=== PATIENT | male | born 1960 | race Caucasian/White ===

== ENCOUNTER 2017-09-01 14:55 | Emergency (ER) | payer MEDICAID ==
[~2017-09-01] VITALS: Ht 175.3 cm; Wt 75.0 kg
[2017-09-01] MEDS ORDERED: LEVO25TA7 PO (15:04)
[2017-09-01] MEDS ORDERED: FAMO20TA8 PO (15:04)
[2017-09-01 15:56] LABS: BASOPHILS % 0.7 % (0.0-2.0); EOSINOPHILS % 6.4 % (0.0-5.0); HEMOGLOBIN. 13.3 g/dL (14.0-18.0); LYMPHOCYTES % 13.7 % (20.0-50.0); MEAN CORPUSCULAR HEMOGLOBIN 30.4 pg (28.0-32.0); MEAN PLATELET VOLUME 7.8 fl (7.4-10.4); MONOCYTES % 7.1 % (2.0-8.0); NEUTROPHILS % 72.1 % (40.0-76.0); PLATELET 228 x1000/uL (130-400); RED BLOOD CELL COUNT 4.38 mill/uL (4.7-6.1); RED CELL DISTRIBUTION WIDTH 13.5 % (11.6-14.6)
[2017-09-01 16:05] LABS: PARTIAL THROMBOPLASTIN TIME 28.9 sec (23.4-31.0); PROTHROMBIN TIME 10.8 sec (9.4-11.6)
[2017-09-01 16:06] LABS: CHLORIDE 102 mEq/L (98-107)
[2017-09-01 16:12] LABS: TROPONIN I < 0.02 ng/mL (0.00-0.04)
[2017-09-01 20:03] VITALS: BP 105/70
== END 2017-09-01 20:03 | disposition home or self-care (01) ==
LOC: ER 14:55
DX: M79.89 Other specified soft tissue disorders (principal); R22.32 Localized swelling, mass and lump, left upper limb; I10 Essential (primary) hypertension
CPT/HCPCS: 36415; 71045; 80053; 83690; 83880; 84484; 85025; 85610; 85730; 93005; 93971; 99285

== ENCOUNTER 2019-01-11 17:01 | Inpatient (IN) | payer MEDICAID ==
[~2019-01-11] VITALS: Ht 170.2 cm; Wt 69.0 kg
[~2019-01-11 17:01] MED LIST: FAMO20TA8 PO; LEVO25TA7 PO
[2019-01-11] MEDS ORDERED: ACETAMINOPHEN 650MG SUPP PR STA (17:19)
[2019-01-11] MEDS ORDERED: PIPERACILLIN/TAZ 3.375G PREMIX 50 ML IV ONE (17:30)
[2019-01-11] MEDS ORDERED: HYDROCORTISONE SOD SUCCINATE 100 MG/2 ML VIAL IV ONE (17:30)
[2019-01-11] MEDS ORDERED: LEVETIRACETAM 500MG PREMIX 100 ML IV ONE (17:30)
[2019-01-11] MEDS ORDERED: VANCOMYCIN 1 G PREMIX 200 ML IV ONE (17:30)
[2019-01-11 17:47] LABS: BG BASE EXCESS 3.5 mmol/L (-2.0-2.0); BG DEOXYHEMOGLOBIN 6.5 % (0.0-5.0); BG HCO3 ACT 30.1 mmol/L (22.0-26.0); BG METHEMOGLOBIN 0.1 % (0.0-1.5); BG OXYGEN SATURATION 93.4 % (92.0-98.5); BG OXYHEMOGLOBIN 92.4 % (94.0-97.0); BG PCO2 53.9 mmHg (35.0-45.0); BG PH 7.365 (7.350-7.450); BG SAMPLE SITE RIGHT BRACHIAL; BG TOTAL HEMOGLOBIN 13.6 g/dL (12.0-18.0); BG VENT MODE ROOM AIR
[2019-01-11 17:50] LABS: BASOPHILS % 0.5 % (0.0-2.0); EOSINOPHILS % 4.4 % (0.0-5.0); HEMATOCRIT. 38.4 % (42.0-52.0); HEMOGLOBIN. 13.3 g/dL (14.0-18.0); LYMPHOCYTES % 8.2 % (20.0-50.0); MEAN CORPUSCULAR HEMOGLOBIN 30.9 pg (28.0-32.0); MEAN PLATELET VOLUME 7.4 fl (7.4-10.4); MONOCYTES % 5.2 % (2.0-8.0); NEUTROPHILS % 81.7 % (40.0-76.0); PLATELET 201 x1000/uL (130-400); RED BLOOD CELL COUNT 4.32 mill/uL (4.7-6.1); RED CELL DISTRIBUTION WIDTH 14.1 % (11.6-14.6)
[2019-01-11 17:57] LABS: PROTHROMBIN TIME 10.4 sec (9.6-11.0)
[2019-01-11 18:13] LABS: CHLORIDE 97 mEq/L (98-107)
[2019-01-11 18:23] LABS: CREATINE KINASE 75 IU/L (39-308); CREATINE KINASE MB FRACTION 2.6 ng/mL (0.5-3.6)
[2019-01-11 18:34] LABS: CARBAMAZEPINE < 0.5 ug/mL (4-12)
[2019-01-11 18:38] LABS: PHENOBARBITAL < 2.1 ug/mL (15.0-40.0)
[2019-01-11] MEDS ORDERED: LORAZEPAM 2MG/ML CPJ IV ONE (19:30)
[2019-01-11] MEDS ORDERED: CLONIDINE 0.1MG TABLET PO PRN (22:15)
[2019-01-11] MEDS ORDERED: ACETAMINOPHEN 325MG TABLET PO PRN (22:15)
[2019-01-11] MEDS ORDERED: MAGNESIUM/ALUMINUM HYDROXIDE/SIMETHICONE 30ML UDC PO PRN (22:15)
[2019-01-11] MEDS ORDERED: DIPHENHYDRAMINE 50MG/ML VIAL IV PRN (22:15)
[2019-01-11] MEDS ORDERED: IPRATROPIUM/ALBUTEROL 0.5-3(2.5)MG/3ML NEB INH PRN (22:15)
[2019-01-12] VITALS (8 sets, daily range): BP systolic 91–124; BP diastolic 57–79
[2019-01-12] MEDS ORDERED: GUAIFENESIN 200MG/10ML SUGAR FREE UDC PO PRN (00:45)
[2019-01-12] MEDS: LORAZEPAM 2MG/ML CPJ IV PRN (03:35)
[2019-01-12] MEDS ORDERED: MVI, ADULT NO.1 10 ML, FOLIC ACID 1 MG, THIAMINE HCL 100 MG in SODIUM CHLORIDE 0.9% 1,0... IV SCH ×4 (10:00)
[2019-01-12] MEDS: ENOXAPARIN 40MG/0.4ML SYR SUBCUT SCH (11:36)
[2019-01-12] MEDS: LEVETIRACETAM 500 MG in SODIUM CHLORIDE 0.9% 100 ML IV SCH ×2 (11:36→22:11)
[2019-01-12] MEDS: SODIUM CHLORIDE 0.9% 1,000 ML IV SCH ×2 (11:37→23:22)
[2019-01-12 18:48] LABS: CLARITY URINE TURBID (CLEAR); COLOR URINE YELLOW (YELLOW); KETONES URINE NEGATIVE (NEGATIVE); LEUKOCYTE ESTERASE URINE 3+ (NEGATIVE); NITRITE URINE POSITIVE (NEGATIVE); OCCULT BLOOD URINE 2+ (NEGATIVE); PH URINE 7.5 (4.5-8.0); PROTEIN URINE NEGATIVE (NEGATIVE); SPECIFIC GRAVITY URINE 1.005 (1.005-1.030); UROBILINOGEN URINE 0.2 E.U./dL (0.2-1.0)
[2019-01-12] MEDS ORDERED: VANCOMYCIN 1250MG in DEXTROSE 5% WATER 250ML IV SCH (20:00)
[2019-01-12] MEDS ORDERED: CITA20SO PO (20:28)
[2019-01-12] MEDS ORDERED: THIA100T72 PO (20:28)
[2019-01-12] MEDS ORDERED: PHEN100C4 PO (20:28)
[2019-01-12] MEDS ORDERED: FOLI-43 PO (20:28)
[2019-01-12] MEDS ORDERED: BACL20TA PO (20:28)
[2019-01-12] MEDS ORDERED: LEVE1000 PO (20:28)
[2019-01-12] MEDS ORDERED: SENN-170 PO (20:28)
[2019-01-12] MEDS ORDERED: GABA-290 PO (20:28)
[2019-01-12] MEDS ORDERED: SUCR1TAB PO (20:28)
[2019-01-12] MEDS ORDERED: LACO200T2 PO (20:28)
[2019-01-12] MEDS ORDERED: MULT-1146 PO (20:28)
[2019-01-13] VITALS (15 sets, daily range): BP systolic 2–132; BP diastolic 53–87
[2019-01-13] MEDS ORDERED: VANCOMYCIN 1 G PREMIX 200 ML IV SCH (04:00)
[2019-01-13] MEDS: SODIUM CHLORIDE 0.9% 1,000 ML IV SCH ×2 (06:11→17:12)
[2019-01-13] MEDS: LEVETIRACETAM 500 MG in SODIUM CHLORIDE 0.9% 100 ML IV SCH (08:54)
[2019-01-13] MEDS: ENOXAPARIN 40MG/0.4ML SYR SUBCUT SCH (08:54)
[2019-01-13] MEDS: IPRATROPIUM/ALBUTEROL 0.5-3(2.5)MG/3ML NEB HHN SCH ×3 (11:37→20:48)
[2019-01-13] MEDS: LORAZEPAM 2MG/ML CPJ IV PRN (12:05)
[2019-01-13] MEDS ORDERED: PHENYTOIN SODIUM 500 MG in SODIUM CHLORIDE 0.9% 50 ML IV NR (14:00)
[2019-01-13] MEDS ORDERED: LACOSAMIDE 200 MG TABLET (VIMPAT) PO SCH (15:00)
[2019-01-13] MEDS: LEVETIRACETAM 2,000 MG in SODIUM CHLORIDE 0.9% 100 ML IV SCH ×2 (15:09→21:27)
[2019-01-13] MEDS: VANCOMYCIN 1 G PREMIX 200 ML IV SCH ×2 (16:26→21:27)
[2019-01-13] MEDS ORDERED: NON FORMULARY PATIENT HOME MED PO SCH (17:00)
[2019-01-13] MEDS: LACOSAMIDE 200 MG TABLET (VIMPAT) PO SCH (17:13)
[2019-01-14] VITALS (11 sets, daily range): BP systolic 97–136; BP diastolic 51–81
[2019-01-14] MEDS: IPRATROPIUM/ALBUTEROL 0.5-3(2.5)MG/3ML NEB HHN SCH ×6 (00:05→20:42)
[2019-01-14] MEDS: LORAZEPAM 2MG/ML CPJ IV PRN ×3 (02:07→17:01)
[2019-01-14] MEDS: VANCOMYCIN 1 G PREMIX 200 ML IV SCH (05:30)
[2019-01-14 07:14] LABS: CHLORIDE 108 mEq/L (98-107)
[2019-01-14 07:21] LABS: VANCOMYCIN TROUGH 27.3 ug/mL (5.0-10.0)
[2019-01-14] MEDS: LACOSAMIDE 200 MG TABLET (VIMPAT) PO SCH ×2 (08:10→16:21)
[2019-01-14] MEDS: PHENYTOIN SODIUM 100MG/2ML VIAL IV SCH ×3 (08:10→22:08)
[2019-01-14] MEDS: ENOXAPARIN 40MG/0.4ML SYR SUBCUT SCH (08:11)
[2019-01-14] MEDS: LEVETIRACETAM 2,000 MG in SODIUM CHLORIDE 0.9% 100 ML IV SCH ×2 (08:11→22:08)
[2019-01-14 09:31] LABS: BASOPHILS % 0.3 % (0.0-2.0); EOSINOPHILS % 1.4 % (0.0-5.0); HEMATOCRIT. 31.9 % (42.0-52.0); HEMOGLOBIN. 11.1 g/dL (14.0-18.0); LYMPHOCYTES % 12.2 % (20.0-50.0); MEAN CORPUSCULAR HEMOGLOBIN 31.2 pg (28.0-32.0); MEAN CORPUSCULAR VOLUME 89.9 fL (80.0-94.0); MONOCYTES % 8.6 % (2.0-8.0); NEUTROPHILS % 77.5 % (40.0-76.0); PLATELET 181 x1000/uL (130-400); RED BLOOD CELL COUNT 3.55 mill/uL (4.7-6.1)
[2019-01-14] MEDS: LEVOFLOXACIN 500MG PREMIX 100 ML IV SCH (14:16)
[2019-01-14] MEDS ORDERED: VANCOMYCIN 1 G PREMIX 200 ML IV SCH (18:00)
[2019-01-15] MEDS: LORAZEPAM 2MG/ML CPJ IV PRN ×3 (00:17→13:45)
[2019-01-15] MEDS: IPRATROPIUM/ALBUTEROL 0.5-3(2.5)MG/3ML NEB HHN SCH ×5 (00:30→20:10)
[2019-01-15] MEDS: PHENYTOIN SODIUM 100MG/2ML VIAL IV SCH ×3 (06:13→21:20)
[2019-01-15 08:00] VITALS: BP 124/79
[2019-01-15] MEDS: LACOSAMIDE 200 MG TABLET (VIMPAT) PO SCH ×2 (08:41→17:58)
[2019-01-15] MEDS: ENOXAPARIN 40MG/0.4ML SYR SUBCUT SCH (08:41)
[2019-01-15] MEDS: LEVETIRACETAM 2,000 MG in SODIUM CHLORIDE 0.9% 100 ML IV SCH ×2 (08:43→21:24)
[2019-01-15] MEDS: BACLOFEN 10MG TABLET PO SCH ×2 (08:55→17:58)
[2019-01-15] MEDS: LAMOTRIGINE 25MG TABLET PO SCH (08:55)
[2019-01-15 10:00] VITALS: BP 125/75
[2019-01-15 12:00] VITALS: BP 133/76
[2019-01-15 14:00] VITALS: BP 138/87
[2019-01-15] MEDS: LEVOFLOXACIN 500MG PREMIX 100 ML IV SCH (14:30)
[2019-01-15] MEDS ORDERED: HALOPERIDOL LACTATE 5MG/ML VIAL IM NR (15:30)
[2019-01-15 16:00] VITALS: BP 101/67
[2019-01-15 18:07] VITALS: BP 107/65
[2019-01-15] MEDS: QUETIAPINE FUMARATE 50MG TABLET PO SCH (21:24)
[2019-01-15] MEDS: LATANOPROST 0.005% OPHTH DROPS 2.5ML BOTHEYE SCH (21:25)
[2019-01-15] MEDS: HALOPERIDOL LACTATE 5MG/ML VIAL IM PRN (22:41)
[2019-01-16] VITALS (11 sets, daily range): BP systolic 97–150; BP diastolic 63–90
[2019-01-16] MEDS: IPRATROPIUM/ALBUTEROL 0.5-3(2.5)MG/3ML NEB HHN SCH ×6 (00:46→20:39)
[2019-01-16] MEDS: PHENYTOIN SODIUM 100MG/2ML VIAL IV SCH ×3 (06:34→21:25)
[2019-01-16] MEDS: ENOXAPARIN 40MG/0.4ML SYR SUBCUT SCH (08:38)
[2019-01-16] MEDS: QUETIAPINE FUMARATE 50MG TABLET PO SCH ×2 (08:38→21:25)
[2019-01-16] MEDS: BACLOFEN 10MG TABLET PO SCH ×2 (08:38→17:18)
[2019-01-16] MEDS: LAMOTRIGINE 25MG TABLET PO SCH (08:38)
[2019-01-16] MEDS: LACOSAMIDE 200 MG TABLET (VIMPAT) PO SCH ×2 (08:38→17:18)
[2019-01-16] MEDS: LEVETIRACETAM 2,000 MG in SODIUM CHLORIDE 0.9% 100 ML IV SCH ×2 (08:39→21:27)
[2019-01-16 08:47] LABS: BASOPHILS % 0.4 % (0.0-2.0); EOSINOPHILS % 5.1 % (0.0-5.0); HEMATOCRIT. 33.9 % (42.0-52.0); HEMOGLOBIN. 11.5 g/dL (14.0-18.0); LYMPHOCYTES % 10.5 % (20.0-50.0); MEAN CORPUSCULAR HEMOGLOBIN 30.9 pg (28.0-32.0); MEAN CORPUSCULAR VOLUME 91.1 fL (80.0-94.0); MEAN PLATELET VOLUME 7.6 fl (7.4-10.4); PLATELET 202 x1000/uL (130-400); RED BLOOD CELL COUNT 3.72 mill/uL (4.7-6.1); RED CELL DISTRIBUTION WIDTH 14.1 % (11.6-14.6)
[2019-01-16 09:30] LABS: CHLORIDE 104 mEq/L (98-107)
[2019-01-16 09:40] LABS: PHOSPHORUS 3.8 mg/dL (2.5-4.9)
[2019-01-16] MEDS: HALOPERIDOL LACTATE 5MG/ML VIAL IM PRN ×2 (12:45→21:25)
[2019-01-16] MEDS: LEVOFLOXACIN 500MG PREMIX 100 ML IV SCH (14:40)
[2019-01-16] MEDS ORDERED: DEXT 5%/0.45% NACL 1000ML 1,000 ML IV ONE (20:00)
[2019-01-16] MEDS: LATANOPROST 0.005% OPHTH DROPS 2.5ML BOTHEYE SCH (21:39)
[2019-01-17] VITALS (12 sets, daily range): BP systolic 108–139; BP diastolic 73–86
[2019-01-17] MEDS: IPRATROPIUM/ALBUTEROL 0.5-3(2.5)MG/3ML NEB HHN SCH ×6 (00:12→21:18)
[2019-01-17] MEDS: PHENYTOIN SODIUM 100MG/2ML VIAL IV SCH ×3 (05:17→21:02)
[2019-01-17] MEDS: ENOXAPARIN 40MG/0.4ML SYR SUBCUT SCH (08:46)
[2019-01-17] MEDS: LEVETIRACETAM 2,000 MG in SODIUM CHLORIDE 0.9% 100 ML IV SCH ×2 (08:46→21:03)
[2019-01-17] MEDS: LAMOTRIGINE 25MG TABLET PO SCH (08:47)
[2019-01-17] MEDS: LACOSAMIDE 200 MG TABLET (VIMPAT) PO SCH ×2 (08:47→17:09)
[2019-01-17] MEDS: QUETIAPINE FUMARATE 50MG TABLET PO SCH ×2 (08:47→21:02)
[2019-01-17] MEDS: BACLOFEN 10MG TABLET PO SCH ×2 (08:47→17:09)
[2019-01-17] MEDS: LEVOFLOXACIN 500MG PREMIX 100 ML IV SCH (14:02)
[2019-01-17] MEDS: LATANOPROST 0.005% OPHTH DROPS 2.5ML BOTHEYE SCH (21:02)
== END 2019-01-17 21:56 | disposition home or self-care (01) | DRG 53 ==
LOC: ER 17:01 → 5EST 18:34 → EDBEDREQ 18:36 → EDBEDREQTM 18:38 → ENRESERV 01-12 07:02
PROVIDERS: ADMIT Internal Medicine; ATTEND Internal Medicine
DX: G40.901 Epilepsy, unspecified, not intractable, with status epilepticus (principal); G82.50 Quadriplegia, unspecified; Z93.0 Tracheostomy status; N31.9 Neuromuscular dysfunction of bladder, unspecified; B96.5 Pseudomonas (aeruginosa) (mallei) (pseudomallei) as the cause of diseases classified elsewhere; L89.890 Pressure ulcer of other site, unstageable; J20.9 Acute bronchitis, unspecified; N39.0 Urinary tract infection, site not specified; F23 Brief psychotic disorder; Z74.01 Bed confinement status
CPT/HCPCS: 36415; 36600; 71045; 80048; 80156; 80165; 80184; 80185; 80202; 80339; 82140; 82375; 82550; 82553; 82805; 82962; 83605; 83735; 83880; 84100; 84134; 84145; 84443; 84484; 87077; 87186; 93005; 94640; 96365; 96368; 96375; 99291; A6261; J1165; J1630; J1650; J1720; J1953; J1956; J2060; J2543; J3370; J3411; J3490; J7030; J7050; J7060; J7620; A4315

== ENCOUNTER 2019-02-19 03:56 | Emergency (ER) | payer MEDICAID ==
[~2019-02-19] VITALS: Ht 167.6 cm; Wt 66.0 kg
[~2019-02-19 03:56] MED LIST changes: +BACL20TA PO; +CITA20SO2 PO; +FOLI-43 PO; +GABA-290 PO; +LACO200T2 PO; +LEVE1000 PO; +MULT-1146 PO; +PHEN100C4 PO; +SENN-170 PO; +SUCR1TAB PO; +THIA100T72 PO
[2019-02-19] MEDS ORDERED: ACETAMINOPHEN 500MG TABLET PO ONE (05:15)
[2019-02-19 08:37] VITALS: BP 83/52
== END 2019-02-19 08:41 | disposition home or self-care (01) ==
LOC: ER 03:56
DX: N40.1 Benign prostatic hyperplasia with lower urinary tract symptoms (principal); R33.8 Other retention of urine; G82.50 Quadriplegia, unspecified; G40.909 Epilepsy, unspecified, not intractable, without status epilepticus; Z87.440 Personal history of urinary (tract) infections
CPT/HCPCS: 51701; 99283

== ENCOUNTER 2019-11-18 10:18 | Inpatient (IN) | payer MEDICAID ==
[~2019-11-18] VITALS: Ht 177.8 cm; Wt 77.1 kg
[2019-11-18] MEDS ORDERED: PROPOFOL 10MG/ML 100ML 100 ML IV SCH (10:45)
[2019-11-18] MEDS ORDERED: ETOMIDATE 2MG/ML 10ML VIAL IV ONE (10:45)
[2019-11-18] MEDS ORDERED: PIPERACILLIN/TAZ 3.375G PREMIX 50 ML IV ONE (10:45)
[2019-11-18] MEDS ORDERED: SODIUM CHLORIDE 0.9% 1000ML BAG (SEPSIS BOLUS) IV ONE ×2 (10:45→12:15)
[2019-11-18] MEDS ORDERED: PROPOFOL 200MG/20ML VIAL IV ONE (10:45)
[2019-11-18 10:46] LABS: BASOPHILS % 0.5 % (0.0-2.0); EOSINOPHILS % 1.9 % (0.0-5.0); HEMATOCRIT. 37.6 % (42.0-52.0); HEMOGLOBIN. 11.9 g/dL (14.0-18.0); LYMPHOCYTES % 35.7 % (20.0-50.0); MEAN CORPUSCULAR HEMOGLOBIN 31.3 pg (28.0-32.0); MEAN CORPUSCULAR VOLUME 98.7 fL (80.0-94.0); MEAN PLATELET VOLUME 7.7 fl (7.4-10.4); MONOCYTES % 6.4 % (2.0-8.0); NEUTROPHILS % 55.5 % (40.0-76.0); PLATELET 401 x1000/uL (130-400); RED BLOOD CELL COUNT 3.81 mill/uL (4.7-6.1); RED CELL DISTRIBUTION WIDTH 17.4 % (11.6-14.6)
[2019-11-18 10:50] LABS: CHLORIDE 102 mEq/L (98-107)
[2019-11-18 10:58] LABS: CREATINE KINASE 84 IU/L (39-308)
[2019-11-18] MEDS ORDERED: VECURONIUM BROMIDE 10 MG/VIAL IV ONE (11:00)
[2019-11-18 11:12] LABS: BG BASE EXCESS -9.3 mmol/L (-2.0-2.0); BG CARBOXYHEMOGLOBIN 0.3 % (0.5-1.5); BG DEOXYHEMOGLOBIN 0.5 % (0.0-5.0); BG FRACTION INSPIRED OXYGEN 100; BG HCO3 ACT 20.7 mmol/L (22.0-26.0); BG METHEMOGLOBIN 0.2 % (0.0-1.5); BG OXYGEN SATURATION 99.5 % (92.0-98.5); BG PCO2 67.2 mmHg (35.0-45.0); BG PH 7.106 (7.350-7.450); BG PO2 550.6 mmHg (75.0-100.0); BG SAMPLE SITE RIGHT BRACHIAL; BG TIDAL VOLUME(mL) 500 mL; BG TOTAL HEMOGLOBIN 10.7 g/dL (12.0-18.0); BG VENT MODE VENT - A/C; BG VENT RATE 14 set
[2019-11-18 11:24] LABS: CLARITY URINE CLEAR (CLEAR); COLOR URINE YELLOW (YELLOW); KETONES URINE NEGATIVE (NEGATIVE); LEUKOCYTE ESTERASE URINE 3+ (NEGATIVE); NITRITE URINE POSITIVE (NEGATIVE); OCCULT BLOOD URINE NEGATIVE (NEGATIVE); PH URINE 7.5 (4.5-8.0); PROTEIN URINE 1+ (NEGATIVE); SPECIFIC GRAVITY URINE 1.012 (1.005-1.030); UROBILINOGEN URINE 0.2 E.U./dL (0.2-1.0)
[2019-11-18] MEDS ORDERED: DIPHENHYDRAMINE 50MG/ML VIAL IV PRN (12:00)
[2019-11-18] MEDS ORDERED: GUAIFENESIN 200MG/10ML SUGAR FREE UDC PO PRN (12:00)
[2019-11-18] MEDS ORDERED: ONDANSETRON HCL 4MG/2ML INJ IV PRN (12:00)
[2019-11-18] MEDS ORDERED: LORAZEPAM 2MG/ML CPJ IV PRN (12:00)
[2019-11-18] MEDS ORDERED: ACETAMINOPHEN 325MG TABLET PO PRN (12:00)
[2019-11-18] MEDS ORDERED: DOCUSATE SODIUM 100MG CAPSULE PO PRN (12:00)
[2019-11-18] MEDS ORDERED: MAGNESIUM/ALUMINUM HYDROXIDE/SIMETHICONE 30ML UDC PO PRN (12:00)
[2019-11-18] MEDS ORDERED: MORPHINE SULFATE 2 MG/ML CPJ (NOT FOR IM USE) IV PRN (12:00)
[2019-11-18] MEDS ORDERED: IPRATROPIUM/ALBUTEROL 0.5-3(2.5)MG/3ML NEB NEB PRN (12:00)
[2019-11-18] MEDS ORDERED: HYDROCODONE/ACETAMINOPHEN 5/325MG TABLET PO PRN (12:00)
[2019-11-18] MEDS ORDERED: CLONIDINE 0.1MG TABLET PO PRN (12:00)
[2019-11-18] MEDS ORDERED: NA PHOS,M-B/NA PHOS,DI-BA ENEMA 118ML PR PRN (12:00)
[2019-11-18] MEDS ORDERED: CLINDAMYCIN 600 MG in DEXTROSE 5% WATER 50 ML IV ONE (12:15)
[2019-11-18] MEDS ORDERED: NOREPINEPHRINE 4 MG in DEXT 5% WATER 246 ML IV ONE (12:15)
[2019-11-18] MEDS ORDERED: NOREPINEPHRINE 4MG/250ML PMX 250 ML IV ONE (12:16)
[2019-11-18] MEDS ORDERED: AZITHROMYCIN 500 MG in DEXT 5% WATER 250 ML IV NR (13:00)
[2019-11-18] MEDS: DEXT 5%/0.45% NACL 1000ML 1,000 ML IV SCH (13:25)
[2019-11-18 13:27] LABS: CHLORIDE 106 mEq/L (98-107)
[2019-11-18] MEDS: ENOXAPARIN 40MG/0.4ML SYR SUBCUT SCH (14:12)
[2019-11-18] MEDS ORDERED: METRONIDAZOLE 500 MG PREMIX 100 ML IV SCH ×2 (14:32→22:00)
[2019-11-18] MEDS ORDERED: PROPOFOL 10MG/ML 100ML 100 ML IV PRN (14:45)
[2019-11-18] MEDS ORDERED: IPRATROPIUM/ALBUTEROL 0.5-3(2.5)MG/3ML NEB HHN PRN (14:45)
[2019-11-18] MEDS ORDERED: IPRATROPIUM/ALBUTEROL 0.5-3(2.5)MG/3ML NEB HHN SCH (18:00)
[2019-11-18] MEDS ORDERED: PIPERACILLIN/TAZ 3.375G PREMIX 50 ML IV NR (18:00)
[2019-11-18] MEDS ORDERED: NOREPINEPHRINE 4MG/250ML PMX 250 ML IV PRN (21:00)
[2019-11-19] VITALS (57 sets, daily range): BP systolic 70–168; BP diastolic 50–86
[2019-11-19] MEDS ORDERED: PHENYLEPHRINE 40 MG in DEXT 5% WATER 246 ML IV PRN ×2 (00:15→10:00)
[2019-11-19] MEDS ORDERED: ACETAMINOPHEN 325MG SUPP PR SCH (00:45)
[2019-11-19] MEDS: DEXT 5%/0.45% NACL 1000ML 1,000 ML IV SCH ×3 (02:18→15:38)
[2019-11-19] MEDS ORDERED: PIPERACILLIN/TAZ 3.375G PREMIX 50 ML IV SCH (03:00)
[2019-11-19] MEDS ORDERED: METRONIDAZOLE 500 MG PREMIX 100 ML IV SCH (03:00)
[2019-11-19 04:49] LABS: HEMATOCRIT. 36.4 % (42.0-52.0); MEAN CORPUSCULAR HEMOGLOBIN 31.1 pg (28.0-32.0); MEAN CORPUSCULAR VOLUME 94.1 fL (80.0-94.0); MEAN PLATELET VOLUME 7.5 fl (7.4-10.4); PLATELET 355 x1000/uL (130-400); RED BLOOD CELL COUNT 3.87 mill/uL (4.7-6.1); RED CELL DISTRIBUTION WIDTH 16.9 % (11.6-14.6)
[2019-11-19 04:54] LABS: CHLORIDE 103 mEq/L (98-107)
[2019-11-19 05:02] LABS: LDL CHOLESTEROL 61 mg/dL (5-100)
[2019-11-19 05:04] LABS: HDL CHOLESTEROL 41 mg/dL (40-59); T4 FREE 1.36 ng/dL (0.76-1.46)
[2019-11-19 05:41] LABS: PLATELET ESTIMATE NORMAL
[2019-11-19] MEDS: PANTOPRAZOLE SODIUM 40 MG/VIAL IV SCH (08:32)
[2019-11-19] MEDS: ASPIRIN 81MG EC TABLET PO SCH (08:32)
[2019-11-19] MEDS ORDERED: NOREPINEPHRINE 4MG/250ML PMX 250 ML IV ONE (09:32)
[2019-11-19 10:05] LABS: BG BASE EXCESS 2.3 mmol/L (-2.0-2.0); BG CARBOXYHEMOGLOBIN 0.3 % (0.5-1.5); BG DEOXYHEMOGLOBIN 5.1 % (0.0-5.0); BG FRACTION INSPIRED OXYGEN 50; BG HCO3 ACT 27.3 mmol/L (22.0-26.0); BG METHEMOGLOBIN 0.3 % (0.0-1.5); BG OXYGEN SATURATION 94.9 % (92.0-98.5); BG OXYHEMOGLOBIN 94.3 % (94.0-97.0); BG PCO2 43.9 mmHg (35.0-45.0); BG PH 7.411 (7.350-7.450); BG PO2 75.3 mmHg (75.0-100.0); BG SAMPLE SITE RIGHT RADIAL; BG TIDAL VOLUME(mL) 500 mL; BG TOTAL HEMOGLOBIN 11.9 g/dL (12.0-18.0); BG VENT MODE VENT - A/C; BG VENT RATE 18 set
[2019-11-19] MEDS: AZITHROMYCIN 500 MG in DEXT 5% WATER 250 ML IV SCH (10:54)
[2019-11-19] MEDS ORDERED: VANCOMYCIN 1500MG in DEXTROSE 5% WATER 250ML IV SCH (11:00)
[2019-11-19] MEDS: PIPERACILLIN/TAZOBACTAM 3.375 G in DEXT 5% WATER 100 ML IV SCH ×2 (11:59→17:35)
[2019-11-19] MEDS ORDERED: AZITHROMYCIN 500 MG in DEXT 5% WATER 250 ML IV SCH (12:00)
[2019-11-19] MEDS ORDERED: PIPERACILLIN/TAZOBACTAM 3.375 G in DEXT 5% WATER 100 ML IV SCH ×3 (12:00)
[2019-11-19] MEDS: ENOXAPARIN 40MG/0.4ML SYR SUBCUT SCH (13:29)
[2019-11-19] MEDS: NOREPINEPHRINE 4 MG in DEXTROSE 5% WATER 250 ML IV PRN ×3 (13:48→21:14)
[2019-11-19] MEDS: IPRATROPIUM/ALBUTEROL 0.5-3(2.5)MG/3ML NEB HHN SCH ×2 (13:55→20:04)
[2019-11-19] MEDS: PROPOFOL 10MG/ML 100ML 100 ML IV PRN (21:16)
[2019-11-19] MEDS: VANCOMYCIN 1 G PREMIX 200 ML IV SCH (22:56)
[2019-11-19] MEDS: BISACODYL 10MG SUPP PR SCH (22:57)
[2019-11-20] VITALS (94 sets, daily range): BP systolic 87–145; BP diastolic 52–91
[2019-11-20] MEDS: PIPERACILLIN/TAZOBACTAM 3.375 G in DEXT 5% WATER 100 ML IV SCH ×4 (00:07→17:38)
[2019-11-20] MEDS: NOREPINEPHRINE 16 MG in DEXT 5% WATER 484 ML IV PRN ×2 (00:10→17:55)
[2019-11-20 04:26] LABS: CHLORIDE 105 mEq/L (98-107)
[2019-11-20 04:32] LABS: HEMATOCRIT. 34.3 % (42.0-52.0); HEMOGLOBIN. 11.1 g/dL (14.0-18.0); MEAN CORPUSCULAR HEMOGLOBIN 30.7 pg (28.0-32.0); MEAN PLATELET VOLUME 7.5 fl (7.4-10.4); PLATELET 235 x1000/uL (130-400); RED BLOOD CELL COUNT 3.61 mill/uL (4.7-6.1); RED CELL DISTRIBUTION WIDTH 17.6 % (11.6-14.6)
[2019-11-20] MEDS: PROPOFOL 10MG/ML 100ML 100 ML IV PRN ×2 (05:33→16:10)
[2019-11-20] MEDS: AZITHROMYCIN 500 MG in DEXT 5% WATER 250 ML IV SCH (08:34)
[2019-11-20] MEDS: PANTOPRAZOLE SODIUM 40 MG/VIAL IV SCH (08:34)
[2019-11-20] MEDS: VANCOMYCIN 1 G PREMIX 200 ML IV SCH (08:34)
[2019-11-20] MEDS: DEXT 5%/0.45% NACL 1000ML 1,000 ML IV SCH ×2 (08:35→17:38)
[2019-11-20] MEDS: ASPIRIN 81MG EC TABLET PO SCH (08:35)
[2019-11-20] MEDS: IPRATROPIUM/ALBUTEROL 0.5-3(2.5)MG/3ML NEB HHN SCH ×3 (08:47→20:00)
[2019-11-20 09:49] LABS: PLATELET ESTIMATE NORMAL
[2019-11-20 09:50] LABS: BG BASE EXCESS 0.6 mmol/L (-2.0-2.0); BG CARBOXYHEMOGLOBIN 0.3 % (0.5-1.5); BG DEOXYHEMOGLOBIN 2.2 % (0.0-5.0); BG FRACTION INSPIRED OXYGEN 50; BG HCO3 ACT 25.9 mmol/L (22.0-26.0); BG METHEMOGLOBIN 0.3 % (0.0-1.5); BG OXYGEN SATURATION 97.8 % (92.0-98.5); BG OXYHEMOGLOBIN 97.2 % (94.0-97.0); BG PCO2 44.5 mmHg (35.0-45.0); BG PH 7.383 (7.350-7.450); BG PO2 107.5 mmHg (75.0-100.0); BG SAMPLE SITE RIGHT RADIAL; BG TIDAL VOLUME(mL) 500 mL; BG TOTAL HEMOGLOBIN 10.7 g/dL (12.0-18.0); BG VENT MODE VENT - A/C; BG VENT RATE 18 set
[2019-11-20] MEDS: ENOXAPARIN 40MG/0.4ML SYR SUBCUT SCH (12:17)
[2019-11-20] MEDS: VANCOMYCIN 1,000 MG in DEXT 5% WATER 250 ML IV SCH (20:41)
[2019-11-20] MEDS: BISACODYL 10MG SUPP PR SCH (20:41)
[2019-11-21] VITALS (96 sets, daily range): BP systolic 86–141; BP diastolic 50–102
[2019-11-21] MEDS: PIPERACILLIN/TAZOBACTAM 3.375 G in DEXT 5% WATER 100 ML IV SCH ×5 (00:09→23:57)
[2019-11-21] MEDS: IPRATROPIUM/ALBUTEROL 0.5-3(2.5)MG/3ML NEB HHN SCH ×4 (01:30→20:28)
[2019-11-21] MEDS: PROPOFOL 10MG/ML 100ML 100 ML IV PRN (02:14)
[2019-11-21 06:06] LABS: CHLORIDE 102 mEq/L (98-107)
[2019-11-21 06:07] LABS: HEMOGLOBIN. 10.4 g/dL (14.0-18.0); MEAN CORPUSCULAR VOLUME 94.8 fL (80.0-94.0); MEAN PLATELET VOLUME 7.6 fl (7.4-10.4); PLATELET 193 x1000/uL (130-400); RED BLOOD CELL COUNT 3.37 mill/uL (4.7-6.1); RED CELL DISTRIBUTION WIDTH 17.8 % (11.6-14.6)
[2019-11-21] MEDS: DEXT 5%/0.45% NACL 1000ML 1,000 ML IV SCH ×2 (06:57→20:57)
[2019-11-21] MEDS: PANTOPRAZOLE SODIUM 40 MG/VIAL IV SCH (08:10)
[2019-11-21] MEDS: VANCOMYCIN 1,000 MG in DEXT 5% WATER 250 ML IV SCH ×2 (08:10→20:56)
[2019-11-21] MEDS: ASPIRIN 81MG EC TABLET PO SCH (08:10)
[2019-11-21] MEDS: AZITHROMYCIN 500 MG in DEXT 5% WATER 250 ML IV SCH (08:10)
[2019-11-21 10:08] LABS: PLATELET ESTIMATE NORMAL
[2019-11-21 10:29] LABS: BG BASE EXCESS 0.7 mmol/L (-2.0-2.0); BG CARBOXYHEMOGLOBIN 0.3 % (0.5-1.5); BG DEOXYHEMOGLOBIN 2.7 % (0.0-5.0); BG FRACTION INSPIRED OXYGEN 40; BG HCO3 ACT 25.5 mmol/L (22.0-26.0); BG METHEMOGLOBIN 0.1 % (0.0-1.5); BG OXYGEN SATURATION 97.3 % (92.0-98.5); BG OXYHEMOGLOBIN 96.9 % (94.0-97.0); BG PCO2 41.6 mmHg (35.0-45.0); BG PH 7.405 (7.350-7.450); BG PO2 100.1 mmHg (75.0-100.0); BG SAMPLE SITE RIGHT RADIAL; BG TIDAL VOLUME(mL) 500 mL; BG TOTAL HEMOGLOBIN 9.4 g/dL (12.0-18.0); BG VENT MODE VENT - A/C; BG VENT RATE 18 set
[2019-11-21 12:18] LABS: BG CARBOXYHEMOGLOBIN 0.3 % (0.5-1.5); BG DEOXYHEMOGLOBIN 2.7 % (0.0-5.0); BG FRACTION INSPIRED OXYGEN 40; BG HCO3 ACT 26.5 mmol/L (22.0-26.0); BG METHEMOGLOBIN 0.2 % (0.0-1.5); BG OXYGEN SATURATION 97.3 % (92.0-98.5); BG OXYHEMOGLOBIN 96.8 % (94.0-97.0); BG PCO2 46.3 mmHg (35.0-45.0); BG PH 7.375 (7.350-7.450); BG PRESSURE SUPPORT 8; BG SAMPLE SITE RIGHT BRACHIAL; BG VENT MODE VENT - CPAP
[2019-11-21] MEDS: ENOXAPARIN 40MG/0.4ML SYR SUBCUT SCH (12:39)
[2019-11-21] MEDS ORDERED: VANCOMYCIN 1 G PREMIX 200 ML IV SCH (20:00)
[2019-11-21] MEDS: BISACODYL 10MG SUPP PR SCH (20:55)
[2019-11-22] VITALS (39 sets, daily range): BP systolic 83–119; BP diastolic 43–77
[2019-11-22] MEDS: IPRATROPIUM/ALBUTEROL 0.5-3(2.5)MG/3ML NEB HHN SCH ×4 (01:07→21:58)
[2019-11-22] MEDS: PIPERACILLIN/TAZOBACTAM 3.375 G in DEXT 5% WATER 100 ML IV SCH ×3 (05:35→18:09)
[2019-11-22 06:58] LABS: HEMATOCRIT. 25.7 % (42.0-52.0); HEMOGLOBIN. 8.6 g/dL (14.0-18.0); MEAN CORPUSCULAR HEMOGLOBIN 31.6 pg (28.0-32.0); MEAN CORPUSCULAR VOLUME 94.8 fL (80.0-94.0); MEAN PLATELET VOLUME 7.6 fl (7.4-10.4); PLATELET 144 x1000/uL (130-400); RED BLOOD CELL COUNT 2.71 mill/uL (4.7-6.1); RED CELL DISTRIBUTION WIDTH 17.4 % (11.6-14.6)
[2019-11-22 07:24] LABS: CHLORIDE 106 mEq/L (98-107)
[2019-11-22 08:48] LABS: PLATELET ESTIMATE NORMAL
[2019-11-22] MEDS: AZITHROMYCIN 500 MG in DEXT 5% WATER 250 ML IV SCH (09:25)
[2019-11-22] MEDS: ASPIRIN 81MG EC TABLET PO SCH (09:25)
[2019-11-22] MEDS: CITALOPRAM HYDROBROMIDE 10MG TABLET PO SCH (09:26)
[2019-11-22] MEDS: DEXT 5%/0.45% NACL 1000ML 1,000 ML IV SCH (09:26)
[2019-11-22] MEDS: PANTOPRAZOLE SODIUM 40 MG/VIAL IV SCH (09:27)
[2019-11-22] MEDS ORDERED: KCL 20MEQ/100ML PREMIX 100 ML IV SCH (13:00)
[2019-11-22] MEDS: VANCOMYCIN 1,000 MG in DEXT 5% WATER 250 ML IV SCH (14:35)
[2019-11-22] MEDS: ENOXAPARIN 40MG/0.4ML SYR SUBCUT SCH (14:35)
[2019-11-22] MEDS: BISACODYL 10MG SUPP PR SCH (20:46)
[2019-11-23] VITALS (10 sets, daily range): BP systolic 94–112; BP diastolic 55–70
[2019-11-23] MEDS: IPRATROPIUM/ALBUTEROL 0.5-3(2.5)MG/3ML NEB HHN SCH ×3 (00:12→17:40)
[2019-11-23] MEDS: PIPERACILLIN/TAZOBACTAM 3.375 G in DEXT 5% WATER 100 ML IV SCH ×4 (00:21→18:00)
[2019-11-23] MEDS: DEXT 5%/0.45% NACL 1000ML 1,000 ML IV SCH ×2 (02:14→12:11)
[2019-11-23 07:44] LABS: HEMATOCRIT. 24.2 % (42.0-52.0); HEMOGLOBIN. 8.2 g/dL (14.0-18.0); MEAN CORPUSCULAR HEMOGLOBIN 31.6 pg (28.0-32.0); MEAN CORPUSCULAR VOLUME 93.6 fL (80.0-94.0); PLATELET 129 x1000/uL (130-400); RED BLOOD CELL COUNT 2.58 mill/uL (4.7-6.1); RED CELL DISTRIBUTION WIDTH 17.3 % (11.6-14.6)
[2019-11-23] MEDS: VANCOMYCIN 1,000 MG in DEXT 5% WATER 250 ML IV SCH (08:00)
[2019-11-23 08:06] LABS: CHLORIDE 106 mEq/L (98-107)
[2019-11-23] MEDS: CITALOPRAM HYDROBROMIDE 10MG TABLET PO SCH (09:01)
[2019-11-23] MEDS: PANTOPRAZOLE SODIUM 40 MG/VIAL IV SCH (09:01)
[2019-11-23] MEDS: ASPIRIN 81MG EC TABLET PO SCH (09:02)
[2019-11-23] MEDS ORDERED: HYDROCODONE/ACETAMINOPHEN 5/325MG TABLET PO PRN (09:45)
[2019-11-23] MEDS: ASPIRIN 81MG TABLET PO SCH (10:01)
[2019-11-23 11:43] LABS: PLATELET ESTIMATE NORMAL
[2019-11-23] MEDS ORDERED: POTASSIUM CHLORIDE 20MEQ/PACKET PO NR (12:00)
[2019-11-23] MEDS: ENOXAPARIN 40MG/0.4ML SYR SUBCUT SCH (12:12)
[2019-11-23] MEDS ORDERED: DIATR MEGLU/DIATRIZOATE SOLN 30ML PO SCH (15:30)
[2019-11-23] MEDS: BISACODYL 10MG SUPP PR SCH (22:14)
[2019-11-24] MEDS: DEXT 5%/0.45% NACL 1000ML 1,000 ML IV SCH ×2 (02:18→15:22)
[2019-11-24] MEDS: IPRATROPIUM/ALBUTEROL 0.5-3(2.5)MG/3ML NEB HHN SCH ×4 (03:35→22:10)
[2019-11-24 06:26] LABS: HEMATOCRIT. 27.2 % (42.0-52.0); MEAN CORPUSCULAR HEMOGLOBIN 31.1 pg (28.0-32.0); MEAN CORPUSCULAR VOLUME 93.5 fL (80.0-94.0); PLATELET 149 x1000/uL (130-400); RED CELL DISTRIBUTION WIDTH 16.8 % (11.6-14.6)
[2019-11-24 06:28] LABS: CHLORIDE 105 mEq/L (98-107)
[2019-11-24 08:00] VITALS: BP 108/64
[2019-11-24] MEDS: PANTOPRAZOLE SODIUM 40 MG/VIAL IV SCH (08:40)
[2019-11-24] MEDS: CITALOPRAM HYDROBROMIDE 10MG TABLET PO SCH (08:40)
[2019-11-24] MEDS: ASPIRIN 81MG TABLET PO SCH (08:40)
[2019-11-24 10:00] VITALS: BP 111/60
[2019-11-24] MEDS ORDERED: POTASSIUM CHLORIDE 20MEQ TABLET SR PO NR (10:04)
[2019-11-24] MEDS ORDERED: POTASSIUM CHLORIDE 20MEQ/PACKET PO NR (10:29)
[2019-11-24 11:36] LABS: PLATELET ESTIMATE NORMAL
[2019-11-24 12:00] VITALS: BP 111/76
[2019-11-24] MEDS ORDERED: LIDOCAINE HCL/EPINEPHRINE 1%-EPI 1:100,000 30 ML VIAL INFIL SCH (12:00)
[2019-11-24] MEDS: ENOXAPARIN 40MG/0.4ML SYR SUBCUT SCH (13:13)
[2019-11-24] MEDS ORDERED: DEXTROSE 50% WATER 50ML SYRINGE IV PRN (13:30)
[2019-11-24] MEDS ORDERED: LIDOCAINE HCL/EPINEPHRINE 1%-EPI 1:100,000 20 ML VIAL INFIL SCH (13:30)
[2019-11-24] MEDS ORDERED: KCL 20MEQ/100ML PREMIX 100 ML IV NR (15:00)
[2019-11-24 16:00] VITALS: BP 105/65
[2019-11-24] MEDS: PIPERACILLIN/TAZOBACTAM 3.375 G in DEXT 5% WATER 100 ML IV SCH ×2 (18:04→23:22)
[2019-11-24 20:00] VITALS: BP 104/59
[2019-11-24] MEDS: BISACODYL 10MG SUPP PR SCH (20:31)
[2019-11-24 23:50] VITALS: BP 110/69
[2019-11-25] MEDS: ACETYLCYSTEINE 100MG/ML 10% VIAL 4ML INH SCH ×2 (00:49→16:38)
[2019-11-25] MEDS: IPRATROPIUM/ALBUTEROL 0.5-3(2.5)MG/3ML NEB HHN SCH ×5 (01:53→21:12)
[2019-11-25] MEDS: DEXT 5%/0.45% NACL 1000ML 1,000 ML IV SCH ×2 (03:20→18:06)
[2019-11-25 03:35] VITALS: BP 109/60
[2019-11-25] MEDS: PIPERACILLIN/TAZOBACTAM 3.375 G in DEXT 5% WATER 100 ML IV SCH ×3 (05:20→17:35)
[2019-11-25 06:36] LABS: BASOPHILS % 0.3 % (0.0-2.0); EOSINOPHILS % 2.8 % (0.0-5.0); HEMATOCRIT. 23.2 % (42.0-52.0); LYMPHOCYTES % 7.3 % (20.0-50.0); MEAN CORPUSCULAR HEMOGLOBIN 31.7 pg (28.0-32.0); MEAN CORPUSCULAR VOLUME 92.6 fL (80.0-94.0); MEAN PLATELET VOLUME 7.8 fl (7.4-10.4); MONOCYTES % 5.3 % (2.0-8.0); NEUTROPHILS % 84.3 % (40.0-76.0); PLATELET 167 x1000/uL (130-400); RED BLOOD CELL COUNT 2.51 mill/uL (4.7-6.1); RED CELL DISTRIBUTION WIDTH 16.8 % (11.6-14.6)
[2019-11-25 06:57] LABS: CHLORIDE 105 mEq/L (98-107)
[2019-11-25 08:00] VITALS: BP 133/43
[2019-11-25] MEDS: KCL 20MEQ/100ML PREMIX 100 ML IV SCH ×2 (08:32→10:57)
[2019-11-25] MEDS: CITALOPRAM HYDROBROMIDE 10MG TABLET PO SCH (08:32)
[2019-11-25] MEDS: ASPIRIN 81MG TABLET PO SCH (08:32)
[2019-11-25] MEDS: PANTOPRAZOLE SODIUM 40 MG/VIAL IV SCH (09:07)
[2019-11-25 12:00] VITALS: BP 130/75
[2019-11-25] MEDS: ENOXAPARIN 40MG/0.4ML SYR SUBCUT SCH (12:01)
[2019-11-25 16:00] VITALS: BP 132/74
[2019-11-25 20:00] VITALS: BP 139/79
[2019-11-25] MEDS ORDERED: KCL 20MEQ/100ML PREMIX 100 ML IV SCH (21:00)
[2019-11-25 22:00] VITALS: BP 120/79
[2019-11-25] MEDS: BISACODYL 10MG SUPP PR SCH (22:08)
[2019-11-26] VITALS: BP 128/76
[2019-11-26] MEDS: PIPERACILLIN/TAZOBACTAM 3.375 G in DEXT 5% WATER 100 ML IV SCH ×4 (00:14→18:23)
[2019-11-26] MEDS: IPRATROPIUM/ALBUTEROL 0.5-3(2.5)MG/3ML NEB HHN SCH ×5 (00:49→16:50)
[2019-11-26 04:00] VITALS: BP 133/82
[2019-11-26 06:47] LABS: BASOPHILS % 0.5 % (0.0-2.0); EOSINOPHILS % 2.6 % (0.0-5.0); HEMATOCRIT. 23.6 % (42.0-52.0); LYMPHOCYTES % 7.2 % (20.0-50.0); MEAN CORPUSCULAR HEMOGLOBIN 31.5 pg (28.0-32.0); MEAN CORPUSCULAR VOLUME 92.9 fL (80.0-94.0); MEAN PLATELET VOLUME 7.8 fl (7.4-10.4); NEUTROPHILS % 82.7 % (40.0-76.0); PLATELET 221 x1000/uL (130-400); RED BLOOD CELL COUNT 2.54 mill/uL (4.7-6.1)
[2019-11-26 06:57] LABS: CHLORIDE 105 mEq/L (98-107)
[2019-11-26] MEDS: DEXT 5%/0.45% NACL 1000ML 1,000 ML IV SCH ×2 (07:56→22:15)
[2019-11-26 08:00] VITALS: BP 118/69
[2019-11-26] MEDS: PANTOPRAZOLE SODIUM 40 MG/VIAL IV SCH (08:49)
[2019-11-26] MEDS: ACETYLCYSTEINE 100MG/ML 10% VIAL 4ML INH SCH ×3 (09:50→21:00)
[2019-11-26] MEDS: ASPIRIN 81MG TABLET PO SCH (10:52)
[2019-11-26] MEDS: CITALOPRAM HYDROBROMIDE 10MG TABLET PO SCH (10:52)
[2019-11-26 11:39] VITALS: BP 114/65
[2019-11-26] MEDS: ENOXAPARIN 40MG/0.4ML SYR SUBCUT SCH (12:05)
[2019-11-26] MEDS ORDERED: KCL 20MEQ/100ML PREMIX 100 ML IV NR (14:00)
[2019-11-26 16:00] VITALS: BP 113/70
[2019-11-26 17:32] VITALS: BP 128/77
[2019-11-26] MEDS: BISACODYL 10MG SUPP PR SCH (22:15)
[2019-11-27] VITALS (8 sets, daily range): BP systolic 115–133; BP diastolic 67–76
[2019-11-27] MEDS: ACETYLCYSTEINE 100MG/ML 10% VIAL 4ML INH SCH ×4 (00:36→22:09)
[2019-11-27] MEDS: PIPERACILLIN/TAZOBACTAM 3.375 G in DEXT 5% WATER 100 ML IV SCH ×5 (02:22→23:55)
[2019-11-27] MEDS: IPRATROPIUM/ALBUTEROL 0.5-3(2.5)MG/3ML NEB HHN SCH ×4 (07:44→20:30)
[2019-11-27] MEDS: ASPIRIN 81MG TABLET PO SCH (09:04)
[2019-11-27] MEDS: PANTOPRAZOLE SODIUM 40 MG/VIAL IV SCH (09:04)
[2019-11-27] MEDS: CITALOPRAM HYDROBROMIDE 10MG TABLET PO SCH (09:04)
[2019-11-27] MEDS: ENOXAPARIN 40MG/0.4ML SYR SUBCUT SCH (12:00)
[2019-11-27 13:06] LABS: CHLORIDE 105 mEq/L (98-107)
[2019-11-27] MEDS ORDERED: POTASSIUM CHLORIDE 20MEQ/PACKET PO NR (16:45)
[2019-11-27] MEDS: BISACODYL 10MG SUPP PR SCH (21:22)
[2019-11-27] MEDS: DEXT 5%/0.45% NACL 1000ML 1,000 ML IV SCH ×2 (22:20→23:38)
[2019-11-28] MEDS: IPRATROPIUM/ALBUTEROL 0.5-3(2.5)MG/3ML NEB HHN SCH ×5 (00:10→20:42)
[2019-11-28] MEDS: ACETYLCYSTEINE 100MG/ML 10% VIAL 4ML INH SCH ×3 (01:01→14:00)
[2019-11-28] MEDS: PIPERACILLIN/TAZOBACTAM 3.375 G in DEXT 5% WATER 100 ML IV SCH (02:51)
[2019-11-28 04:00] VITALS: BP 124/77
[2019-11-28 07:05] LABS: HEMATOCRIT. 22.8 % (42.0-52.0); HEMOGLOBIN. 7.6 g/dL (14.0-18.0); LYMPHOCYTES % 11.3 % (20.0-50.0); MEAN CORPUSCULAR HEMOGLOBIN 31.6 pg (28.0-32.0); MEAN CORPUSCULAR VOLUME 93.9 fL (80.0-94.0); MEAN PLATELET VOLUME 7.7 fl (7.4-10.4); MONOCYTES % 9.6 % (2.0-8.0); NEUTROPHILS % 70.1 % (40.0-76.0); PLATELET 369 x1000/uL (130-400); RED BLOOD CELL COUNT 2.42 mill/uL (4.7-6.1); RED CELL DISTRIBUTION WIDTH 16.8 % (11.6-14.6)
[2019-11-28 08:00] VITALS: BP 114/72
[2019-11-28 08:18] LABS: CHLORIDE 104 mEq/L (98-107)
[2019-11-28] MEDS: PANTOPRAZOLE SODIUM 40 MG/VIAL IV SCH (09:41)
[2019-11-28] MEDS: ASPIRIN 81MG TABLET PO SCH (09:41)
[2019-11-28] MEDS: CITALOPRAM HYDROBROMIDE 10MG TABLET PO SCH (09:41)
[2019-11-28] MEDS ORDERED: POTASSIUM CHLORIDE 20MEQ/PACKET GT SCH (10:00)
[2019-11-28 12:00] VITALS: BP 110/72
[2019-11-28] MEDS: DEXT 5%/0.45% NACL 1000ML 1,000 ML IV SCH (14:33)
[2019-11-28] MEDS: ENOXAPARIN 40MG/0.4ML SYR SUBCUT SCH (14:34)
[2019-11-28 16:00] VITALS: BP 117/76
[2019-11-28 20:00] VITALS: BP 119/73
[2019-11-28] MEDS: BISACODYL 10MG SUPP PR SCH (20:24)
[2019-11-28 22:00] VITALS: BP 126/67
[2019-11-29] VITALS (8 sets, daily range): BP systolic 93–129; BP diastolic 59–75
[2019-11-29] MEDS: IPRATROPIUM/ALBUTEROL 0.5-3(2.5)MG/3ML NEB HHN SCH ×7 (00:54→21:49)
[2019-11-29] MEDS: DEXT 5%/0.45% NACL 1000ML 1,000 ML IV SCH ×2 (03:26→16:42)
[2019-11-29 07:39] LABS: EOSINOPHILS % 7.2 % (0.0-5.0); HEMATOCRIT. 23.9 % (42.0-52.0); HEMOGLOBIN. 8.1 g/dL (14.0-18.0); LYMPHOCYTES % 10.5 % (20.0-50.0); MEAN CORPUSCULAR HEMOGLOBIN 31.6 pg (28.0-32.0); MEAN CORPUSCULAR VOLUME 93.4 fL (80.0-94.0); MEAN PLATELET VOLUME 7.5 fl (7.4-10.4); MONOCYTES % 7.5 % (2.0-8.0); NEUTROPHILS % 73.8 % (40.0-76.0); PLATELET 432 x1000/uL (130-400); RED BLOOD CELL COUNT 2.55 mill/uL (4.7-6.1); RED CELL DISTRIBUTION WIDTH 16.7 % (11.6-14.6)
[2019-11-29 08:14] LABS: CHLORIDE 104 mEq/L (98-107)
[2019-11-29] MEDS: PANTOPRAZOLE SODIUM 40 MG/VIAL IV SCH (09:39)
[2019-11-29] MEDS: ASPIRIN 81MG TABLET PO SCH (09:39)
[2019-11-29] MEDS: CITALOPRAM HYDROBROMIDE 10MG TABLET PO SCH (09:39)
[2019-11-29] MEDS ORDERED: POTASSIUM CHLORIDE 20MEQ TABLET SR PO SCH (10:00)
[2019-11-29] MEDS: ENOXAPARIN 40MG/0.4ML SYR SUBCUT SCH (13:02)
[2019-11-29] MEDS: BISACODYL 10MG SUPP PR SCH (20:45)
[2019-11-30] VITALS: BP 121/100
[2019-11-30] MEDS: ACETYLCYSTEINE 100MG/ML 10% VIAL 4ML INH SCH ×2 (00:42→15:20)
[2019-11-30] MEDS: IPRATROPIUM/ALBUTEROL 0.5-3(2.5)MG/3ML NEB HHN SCH ×5 (00:42→21:35)
[2019-11-30 04:00] VITALS: BP 118/70
[2019-11-30] MEDS: DEXT 5%/0.45% NACL 1000ML 1,000 ML IV SCH ×2 (06:09→19:00)
[2019-11-30 07:15] LABS: BASOPHILS % 0.6 % (0.0-2.0); EOSINOPHILS % 3.8 % (0.0-5.0); HEMATOCRIT. 27.9 % (42.0-52.0); HEMOGLOBIN. 9.2 g/dL (14.0-18.0); LYMPHOCYTES % 7.8 % (20.0-50.0); MEAN CORPUSCULAR HEMOGLOBIN 30.9 pg (28.0-32.0); MEAN CORPUSCULAR VOLUME 93.3 fL (80.0-94.0); MEAN PLATELET VOLUME 7.3 fl (7.4-10.4); NEUTROPHILS % 82.8 % (40.0-76.0); PLATELET 514 x1000/uL (130-400); RED BLOOD CELL COUNT 2.99 mill/uL (4.7-6.1); RED CELL DISTRIBUTION WIDTH 16.6 % (11.6-14.6)
[2019-11-30 07:30] LABS: CHLORIDE 104 mEq/L (98-107)
[2019-11-30 08:00] VITALS: BP 113/68
[2019-11-30] MEDS: ZINC SULFATE 220 MG ( 50 ) CAPSULE PO SCH (08:52)
[2019-11-30] MEDS: ASCORBIC ACID 500 MG TABLET PO SCH (08:52)
[2019-11-30] MEDS: MULTIVITAMINS,THER W-MINERALS TABLET PO SCH (08:53)
[2019-11-30] MEDS: ASPIRIN 81MG TABLET PO SCH (08:53)
[2019-11-30] MEDS: CITALOPRAM HYDROBROMIDE 10MG TABLET PO SCH (08:53)
[2019-11-30] MEDS: PANTOPRAZOLE SODIUM 40 MG/VIAL IV SCH (08:53)
[2019-11-30] MEDS ORDERED: POTASSIUM CHLORIDE 20MEQ/PACKET PO SCH (10:00)
[2019-11-30 12:00] VITALS: BP 124/73
[2019-11-30] MEDS: ENOXAPARIN 40MG/0.4ML SYR SUBCUT SCH (13:38)
[2019-11-30 16:00] VITALS: BP 122/62
[2019-11-30 20:00] VITALS: BP 114/59
[2019-11-30] MEDS: BISACODYL 10MG SUPP PR SCH (20:56)
[2019-12-01] VITALS: BP 124/65
[2019-12-01 04:00] VITALS: BP 118/67
[2019-12-01] MEDS: DEXT 5%/0.45% NACL 1000ML 1,000 ML IV SCH ×2 (06:02→21:30)
[2019-12-01 06:42] LABS: HEMATOCRIT. 23.6 % (42.0-52.0); MEAN CORPUSCULAR HEMOGLOBIN 31.3 pg (28.0-32.0); MEAN CORPUSCULAR VOLUME 92.5 fL (80.0-94.0); MEAN PLATELET VOLUME 7.2 fl (7.4-10.4); PLATELET 520 x1000/uL (130-400); RED BLOOD CELL COUNT 2.55 mill/uL (4.7-6.1); RED CELL DISTRIBUTION WIDTH 16.5 % (11.6-14.6)
[2019-12-01 07:24] LABS: CHLORIDE 104 mEq/L (98-107)
[2019-12-01 08:00] VITALS: BP 118/69
[2019-12-01] MEDS: IPRATROPIUM/ALBUTEROL 0.5-3(2.5)MG/3ML NEB HHN SCH ×4 (08:00→21:53)
[2019-12-01 09:02] LABS: PLATELET ESTIMATE INCREASED
[2019-12-01] MEDS: MULTIVITAMINS,THER W-MINERALS TABLET PO SCH (09:02)
[2019-12-01] MEDS: ASPIRIN 81MG TABLET PO SCH (09:02)
[2019-12-01] MEDS: ZINC SULFATE 220 MG ( 50 ) CAPSULE PO SCH (09:02)
[2019-12-01] MEDS: ASCORBIC ACID 500 MG TABLET PO SCH (09:02)
[2019-12-01] MEDS: PANTOPRAZOLE SODIUM 40 MG/VIAL IV SCH (09:02)
[2019-12-01] MEDS: CITALOPRAM HYDROBROMIDE 10MG TABLET PO SCH (09:04)
[2019-12-01] MEDS ORDERED: POTASSIUM CHLORIDE INJ 40 MEQ in DEXT 5% WATER 250 ML IV SCH (10:00)
[2019-12-01 12:00] VITALS: BP 114/89
[2019-12-01] MEDS: ENOXAPARIN 40MG/0.4ML SYR SUBCUT SCH (13:16)
[2019-12-01] MEDS ORDERED: KCL 20MEQ/100ML PREMIX 100 ML IV SCH (15:30)
[2019-12-01 16:00] VITALS: BP 127/75
[2019-12-01 20:00] VITALS: BP 95/40
[2019-12-01] MEDS: BISACODYL 10MG SUPP PR SCH (21:30)
[2019-12-01] MEDS: LATANOPROST 0.005% OPHTH DROPS 2.5ML BOTHEYE SCH (21:31)
[2019-12-01] MEDS: TIMOLOL MALEATE 0.5% OPHTH DROPS 5ML EACHEYE SCH (21:31)
[2019-12-02] VITALS: BP 128/54
[2019-12-02] MEDS: IPRATROPIUM/ALBUTEROL 0.5-3(2.5)MG/3ML NEB HHN SCH ×4 (00:08→12:17)
[2019-12-02 04:00] VITALS: BP 139/73
[2019-12-02 07:25] LABS: BASOPHILS % 1.1 % (0.0-2.0); EOSINOPHILS % 5.4 % (0.0-5.0); HEMATOCRIT. 24.2 % (42.0-52.0); HEMOGLOBIN. 8.3 g/dL (14.0-18.0); LYMPHOCYTES % 9.2 % (20.0-50.0); MEAN CORPUSCULAR HEMOGLOBIN 31.4 pg (28.0-32.0); MEAN PLATELET VOLUME 7.4 fl (7.4-10.4); MONOCYTES % 6.2 % (2.0-8.0); NEUTROPHILS % 78.1 % (40.0-76.0); PLATELET 514 x1000/uL (130-400); RED BLOOD CELL COUNT 2.64 mill/uL (4.7-6.1); RED CELL DISTRIBUTION WIDTH 16.4 % (11.6-14.6)
[2019-12-02 07:36] LABS: CHLORIDE 102 mEq/L (98-107)
[2019-12-02 08:00] VITALS: BP 115/63
[2019-12-02] MEDS: ASPIRIN 81MG TABLET PO SCH (08:41)
[2019-12-02] MEDS: ASCORBIC ACID 500 MG TABLET PO SCH (08:41)
[2019-12-02] MEDS: CITALOPRAM HYDROBROMIDE 10MG TABLET PO SCH (08:41)
[2019-12-02] MEDS: ZINC SULFATE 220 MG ( 50 ) CAPSULE PO SCH (08:41)
[2019-12-02] MEDS: MULTIVITAMINS,THER W-MINERALS TABLET PO SCH (08:41)
[2019-12-02] MEDS: PANTOPRAZOLE SODIUM 40 MG/VIAL IV SCH (08:41)
[2019-12-02] MEDS: TIMOLOL MALEATE 0.5% OPHTH DROPS 5ML EACHEYE SCH ×2 (08:42→21:32)
[2019-12-02] MEDS: DEXT 5%/0.45% NACL 1000ML 1,000 ML IV SCH (10:33)
[2019-12-02 12:00] VITALS: BP 123/73
[2019-12-02] MEDS: ENOXAPARIN 40MG/0.4ML SYR SUBCUT SCH (13:22)
[2019-12-02 16:00] VITALS: BP 112/63
[2019-12-02 20:00] VITALS: BP 115/65
[2019-12-02] MEDS: BISACODYL 10MG SUPP PR SCH ×2 (21:00→21:32)
[2019-12-02] MEDS: LATANOPROST 0.005% OPHTH DROPS 2.5ML BOTHEYE SCH (21:32)
[2019-12-03] VITALS: BP 120/62
[2019-12-03] MEDS: DEXT 5%/0.45% NACL 1000ML 1,000 ML IV SCH (00:13)
[2019-12-03] MEDS: IPRATROPIUM/ALBUTEROL 0.5-3(2.5)MG/3ML NEB HHN SCH ×3 (01:10→12:48)
[2019-12-03 04:00] VITALS: BP 112/69
[2019-12-03 08:00] VITALS: BP 117/57
[2019-12-03] MEDS: ASCORBIC ACID 500 MG TABLET PO SCH (09:51)
[2019-12-03] MEDS: ASPIRIN 81MG TABLET PO SCH (09:51)
[2019-12-03] MEDS: CITALOPRAM HYDROBROMIDE 10MG TABLET PO SCH (09:51)
[2019-12-03] MEDS: PANTOPRAZOLE SODIUM 40 MG/VIAL IV SCH (09:51)
[2019-12-03] MEDS: ZINC SULFATE 220 MG ( 50 ) CAPSULE PO SCH (09:51)
[2019-12-03] MEDS: MULTIVITAMINS,THER W-MINERALS TABLET PO SCH (09:51)
[2019-12-03] MEDS: TIMOLOL MALEATE 0.5% OPHTH DROPS 5ML EACHEYE SCH (09:52)
[2019-12-03 11:00] VITALS: BP 96/60
[2019-12-03 11:43] VITALS: BP 96/60
[2019-12-03] MEDS: ENOXAPARIN 40MG/0.4ML SYR SUBCUT SCH (12:48)
== END 2019-12-03 14:00 | disposition home health service (06) | DRG 710 ==
LOC: ER 10:26 → CVICU 10:27 → EDBEDREQTM 11:39 → EDBEDREQ 11:39 → CANRESERV 18:29 → ENRESERV 18:29 → 5EST 11-22 15:45
PROVIDERS: ADMIT Internal Medicine; ATTEND Internal Medicine
PROC: 5A12012 Performance of Cardiac Output, Single, Manual (ICD-10-PCS; principal; 2019-11-18)
PROC: 5A1945Z Respiratory Ventilation, 24-96 Consecutive Hours (ICD-10-PCS; 2019-11-18)
PROC: 0BH17EZ Insertion of Endotracheal Airway into Trachea, Via Natural or Artificial Opening (ICD-10-PCS; 2019-11-18)
PROC: B54CZZA Ultrasonography of Left Lower Extremity Veins, Guidance (ICD-10-PCS; 2019-11-18)
PROC: 06HY33Z Insertion of Infusion Device into Lower Vein, Percutaneous Approach (ICD-10-PCS; 2019-11-18)
PROC: 0KBN0ZZ Excision of Right Hip Muscle, Open Approach (ICD-10-PCS; 2019-11-24)
DX: A41.50 Gram-negative sepsis, unspecified (principal); I46.9 Cardiac arrest, cause unspecified; J96.21 Acute and chronic respiratory failure with hypoxia; R65.21 Severe sepsis with septic shock; J69.0 Pneumonitis due to inhalation of food and vomit; G82.50 Quadriplegia, unspecified; G92 Toxic encephalopathy; J91.8 Pleural effusion in other conditions classified elsewhere; L89.314 Pressure ulcer of right buttock, stage 4; E46 Unspecified protein-calorie malnutrition; B96.4 Proteus (mirabilis) (morganii) as the cause of diseases classified elsewhere; C34.90 Malignant neoplasm of unspecified part of unspecified bronchus or lung; D64.9 Anemia, unspecified; E03.9 Hypothyroidism, unspecified; E87.2 Acidosis; E87.5 Hyperkalemia; E87.6 Hypokalemia; G40.909 Epilepsy, unspecified, not intractable, without status epilepticus; I27.20 Pulmonary hypertension, unspecified; I48.0 Paroxysmal atrial fibrillation; K52.9 Noninfective gastroenteritis and colitis, unspecified; K62.89 Other specified diseases of anus and rectum; N30.20 Other chronic cystitis without hematuria; R13.10 Dysphagia, unspecified; R59.0 Localized enlarged lymph nodes; I11.9 Hypertensive heart disease without heart failure; F32.9 Major depressive disorder, single episode, unspecified; T17.928A Food in respiratory tract, part unspecified causing other injury, initial encounter; X58.XXXA Exposure to other specified factors, initial encounter; R74.0 Nonspecific elevation of levels of transaminase and lactic acid dehydrogenase [LDH]; R62.7 Adult failure to thrive; Z74.01 Bed confinement status; Z79.899 Other long term (current) drug therapy; Z86.73 Personal history of transient ischemic attack (TIA), and cerebral infarction without residual deficits; Z88.8 Allergy status to other drugs, medicaments and biological substances; Y93.89 Activity, other specified; Y92.89 Other specified places as the place of occurrence of the external cause; Y99.8 Other external cause status; Z68.24 Body mass index [BMI] 24.0-24.9, adult
CPT/HCPCS: 36415; 36600; 71045; 71250; 74176; 78315; 80048; 80053; 80061; 80202; 81003; 82040; 82375; 82550; 82805; 82962; 83605; 83880; 84134; 84145; 84439; 84443; 84478; 84484; 85025; 85651; 86140; 86850; 86900; 87070; 87077; 87186; 92610; 93005; 93306; 94002; 94003; 94640; 94667; 97161; 99291; A9503; C9113; J0456; J1650; J2543; J2704; J3370; J3480; J3490; J7030; J7060; J7608; Q9963